=== PATIENT | male | born 1990 | race Caucasian/White ===

== ENCOUNTER 2016-06-07 10:08 | Emergency (ER) | payer OTHER ==
[2016-06-07] MEDS ORDERED: IBUPROFEN 800 MG TABLET PO STA (10:55)
[2016-06-07] MEDS ORDERED: IBUPROFEN 800 MG TABLET PO ONE (11:00)
== END 2016-06-07 11:57 | disposition home or self-care (01) ==
DX: J06.9 Acute upper respiratory infection, unspecified (principal); B97.89 Other viral agents as the cause of diseases classified elsewhere; R05 Cough; F17.200 Nicotine dependence, unspecified, uncomplicated
CPT/HCPCS: 71020; 87070; 87430; 99283; 99284; A9270